=== PATIENT | female | born 1955 | race Caucasian/White ===

== ENCOUNTER 2022-05-21 14:31 | Outpatient (CLI) | payer OTHER, SELFPAY ==
--- NOTE | 2022-05-21 14:30 | CRLHL7_ITS ---
For Patients: As a result of the Century Cures Act, medical imaging exams and procedure reports are released immediately into your electronic medical record. You may view this report before your referring provider. If you have questions, please contact your health care provider. DXA BONE MINERAL DENSITY STUDY Current height (in): 59. Weight (lb): 140. Menopause age: 40. Ethnicity: . 1. Have you had a previous hip or vertebral fracture? No. 2. Have you had any fractures during your adult life which did not result from significant trauma (e.g., auto accident)? No. 3. Did either of your parents have a hip fracture? No. 4. Do you smoke? No. 5. Have you ever taken Glucocorticoids? No. 6. Do you have rheumatoid arthritis? No. 7. Do you have secondary osteoporosis? No. 8. Do you drink 3 or more alcoholic drinks per day? No. 9. Are you being treated for osteoporosis? No. 10. Have you ever taken any of the following medications: Actonel, Evista, Fosamax, Miacalcin, Reclast, Boniva, Forteo, HRT (i.e. estrogen/hormone therapy), Protelos, Prolia, Vitamin D, Calcium, other ??? please specify. ANSWER: No. 11. Do you have any of the following medical conditions: Anorexia or bulimia, asthma or emphysema, end stage renal disease, hyperparathyroidism, any seizure disorders, cancer, inflammatory bowel diseases, hysterectomy, other ??? please specify. ANSWER: Yes, hysterectomy. 12. What was your maximum height (inches)? 59. 13. Do you perform weight bearing exercise regularly? Yes. 14. Do you regularly consume dairy products? No. 15. Do you drink caffeinated beverages? Yes. 16. At what age did your period start? 12. 17. Are you premenopausal? No. 18. How many full term pregnancies have you had? 4. 19. Have you ever missed your period for more than 6 months in a row (not including or menopause)? No. TECHNIQUE: Bone mineral density study was performed using the [employer]. FINDINGS: The results of the study expressed as bone mineral density (BMD) are as follows: Lumbar spine L1 to L4: BMD: 0.689 g/cm2. T-score: -3.3. Z-score: -1.3. Neck Left: BMD: 0.557 g/cm2. T-score: -2.6. Z-score: -1.1. Right: BMD: 0.551 g/cm2. T-score: -2.7. Z-score: -1.2. Total Left: BMD: 0.682 g/cm2. T-score: -2.1. Z-score: -0.8. Right: BMD: 0.714 g/cm2. T-score: -1.9. Z-score: -0.6. IMPRESSION: Osteoporosis. Stanislaw Gutierrez M.D. Diagnostic Radiologist [email or web address] JENNY/Dictated by: Stanislaw Gutierrez MD @ 05/22/2022 4:55:00 PM (Electronically Signed)
== END 2022-05-21 14:32 | disposition home or self-care (01) ==
PROVIDERS: PCP Internal Medicine; Visit Provider Internal Medicine
DX: Z78.0 Asymptomatic menopausal state (principal); M81.0 Age-related osteoporosis without current pathological fracture
CPT/HCPCS: 77080

== ENCOUNTER 2022-05-23 01:12 | Emergency (ER) | payer OTHER, SELFPAY ==
[2022-05-23 01:24] VITALS: BP 123/72; PULSE 74; RESP 16; TEMP 36.6; O2SAT 97; BMI 26.5
--- NOTE | 2022-05-23 01:53 | ED.GENADULT ---
HPI - General Adult General Time Seen by Provider: 01:30 Date Seen: 05/23/22 Chief complaint: Unspecified Complaint, Adult Stated complaint: Rectal Bleeding Time Seen by Provider: 05/23/22 01:13 Source: patient and RN notes reviewed Mode of arrival: ambulatory Limitations: no limitations History of Present Illness HPI narrative: The patient is a very pleasant 67 year old female with a history of hemorrhoids who notes that she has had some bleeding from her rectum tonight. It was only a small amount of blood. This has not happened to her in the past. She denies pain in the rectum, but does note itchiness. She admits to straining with bowel movements but denies constipation. She has not had any surgery for this in the past. Chel denies abdominal pain, fever or vomiting. Related Data Home Medications Medication Instructions Recorded Confirmed No Known Home Medications 05/23/22 05/23/22 Allergies Allergy/AdvReac Type Severity Reaction Status Date / Time No Known Allergies Allergy Unverified 05/19/22 15:00 Review of Systems Const: Denies: fever GI: Reports: rectal pain; Denies: abdominal pain or vomiting PFSH PFS Surgical History History of appendectomy (2019) History of laparoscopic cholecystectomy (09/18/11) Status post vaginal hysterectomy (2014) Social History Smoking Status: Never smoker How often do you have a drink containing alcohol: never AUDIT-C Alcohol total score: 0 Non-prescribed substance use: denies use Exam Narrative: Exam Narrative: History and exam assisted by world geography teacher Const: Vital Signs, click to edit/add: Vital Signs - 24 hr 05/23/22 01:24 Temperature 97.9 F Pulse Rate [Left P ulse Oximeter] 74 Respiratory Rate 16 Blood Pressure [Ri ght Upper Arm] 123/72 Pulse Oximetry 97 Documenting provider has reviewed patient's vital signs: yes Common normals: no apparent distress and oriented x3 General appearance: cooperative Resp: Common normals: normal respiratory effort and clear to auscultation bilaterally Auscultation: clear to auscultation bilaterally Cardio: Common normals: regular rate and regular rhythm Rate: regular rate Rhythm: regular rhythm GI: Common normals: Normal to inspection, nondistended, normoactive bowel sounds present, soft to palpation and non-tender Palpation: soft Rectal Exam - Female: normal sphincter tone, external hemorrhoid(s) and hemorrhoids External hemorrhoid(s): Yes Other: 4oclock position noted to have a small fissure. No active bleeding at this time Neuro: Common normals: oriented x3 Course Vital Signs Vital signs: Initial Vital Signs Temperature 97.9 F 05/23/22 01:24 Temperature Source Temporal Artery Scan 05/23/22 01:24 Pulse Rate 74 05/23/22 01:24 Respiratory Rate 16 05/23/22 01:24 Blood Pressure 123/72 05/23/22 01:24 Blood Pressure Mean 89 05/23/22 01:24 Pulse Oximetry 97 05/23/22 01:24 Oxygen Delivery Method 05/23/22 01:24 Vital Signs Temperature 97.9 F 05/23/22 01:24 Pulse Rate 74 05/23/22 01:24 Respiratory Rate 16 05/23/22 01:24 Blood Pressure 123/72 05/23/22 01:24 Pulse Oximetry 97 05/23/22 01:24 Temperature 97.9 F 05/23/22 01:24 Pulse Rate 74 05/23/22 01:24 Respiratory Rate 16 05/23/22 01:24 Blood Pressure 123/72 05/23/22 01:24 Pulse Oximetry 97 05/23/22 01:24 Discharge Plan Discharge Clinical Impression: Hemorrhoids Patient Disposition: Home, Self-Care Condition: Unchanged Instructions: Hemorrhoids (ED) Additional Instructions: Continue to use your Preparation H and Tucks pads for comfort Gentle wiping after having a bowel movement - try to not strain when having a bowel movement. Follow up with our surgeons if you have ongoing problems [phone] for appointment Activity Level: No Restrictions Prescriptions: No Action No Known Home Medications 0RF Follow Up/Referrals: Ambika Fermin MD [Primary Care Provider] - Stand Alone Forms: [facility] Info Instructions
--- OUTSIDE RECORDS SUMMARY | 2022-06-17 13:02 | XMS_ITS | Continuity of Care Document ---
:1955 Author Organization [facility] Address [address] [address] [place] [address] Phone Care Team Providers Name Role Phone Jorje Peoples MD Unavailable Unavailable Procedures Procedure Date Ugi Endo; W/remov Fb Subsqt Hosp-da E&m Minr Compl Ercp; W/endo Retro Remov Stone Outpt Ercp; W/sphincterotomy/papillo Outpt Ercp; W/endo Retro Insrt Tube Outpt Ercp; W/endo Retro Insrt Tube Outpt Init Inpt Cons New/est Mod-hi Advance Directives Directive Yes / No Effective Date File Name No Information Encounters Encounter Practice Location Reason(s) Diagnoses Date Provider Provide rs Description For Visit Copied on Encounter [facility] No Richelle MARRUFO Referring [facility] Information 6-201 Jorje. Pro vider: [facility], Hosp 1 [address] [facility] [address], [address], [address] [place] [address], [place], [place], [facility] [id number], [place], [address], [id number], [place] tel: [place], [place], [id number] tel:[phone] . 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 30 01 Provider: [facility] Hosp 1 [facility] [address] [place] [address], [address], [place], [place], [address], [place], [place], [address] [id number], [id number], [address], [place]. [place] tel:+ tel:[phone] s, [place], [phone]. tel:[phone] [facility] Dis Of Richelle MARRUFO Referring [facility] Biliary Jorje. Provide r: Health [place], Hosp Tract Nos [address] [facility] [address], [address], [place], [facility] [address], [address], [place], [place], [address] [id number], [place], [address], [place] [id number], [place] tel:+[phone] [place]. [place], [place], [id number] tel:[phone] tel:[phone] Init Inpt [facility] No No Referring Cons New/est [facility] Information Informat ion Provider: [facility], Hosp 1 [facility] [address], [place], [facility] [address], [place], [address] [id number], [address], [place] tel:[phone] s, [place], [phone]. tel:[phone] Family History Family Member Type Diagnosis Age At Onset No Information Payers Payer name Insurance type Covered constitution party ID Authorization(s ) Blue Cross Of [facility] [id number] Social History Type Description Quantity Date Captured Comments Sex Female Smoking Status No Information Chief Complaint And Reason For Visit No Information Reason For Referral Reason For Referral No Information Plan Of Treatment Date Type Action Status No Information History Of Present Illness Encounter Date Complaint History Of Present I llness No Information Functional Status Date Functional Assessment No Information Instructions Date Instruction Additional Informati on No Information Assessments Type Assessment Date No Information Patient Care Teams Name Effective Dates (start - stop) Status M embkenan No Information
--- OUTSIDE RECORDS SUMMARY | 2022-06-17 13:02 | XMS_ITS | Continuity of Care Document ---
:1955 Author Organization [facility] Address [address] [address] [place] [address] Phone Care Team Providers Name Role Phone [...] [facility] No Richelle MARRUFO Referring [facility] Information 6-201 Jorje. Pro vider: [facility] Hosp 1 [address] [place], [address], [address], [address] [place] [address], [place], [place], [facility] [id number], [place], [address], [id number], [place] tel: [place], [place], [address] tel:[phone] . 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 30 01 Provider: [facility], Hosp 1 [facility] [address] [place] [address], [address], [place], [place], [address], [place], [place], [address] [id number], [id number], [address], [place] tel:+ tel:[phone] s, [place], [phone]. tel:[phone] [facility] Dis Of Richelle MARRUFO Referring [facility] Biliary Jorje. Provide r: Health [place], Hosp Tract Nos [address] [facility] [address], [address], [place], [facility] [address], [address], [place], [place], [address] [place] [id number], [place], [address], [place] [id number], [place] tel:+[phone] [place]. [place], [place], [address] tel:[phone] tel:[phone] Init Inpt [facility] No No Referring Cons New/est [facility] Information Informat ion Provider: [facility], Hosp 1 [facility] [address], [place], [facility] [address], [place], [address] [id number], [address], [place] tel:[phone] s, [place], [phone]. tel:[phone] Family History Family Member Type Diagnosis Age At Onset No Information Payers Payer name Insurance type Covered green party ID Authorization(s ) Blue Cross Of [facility] [id number] Social History Type Description Quantity Date Captured [...]
== END 2022-05-23 02:14 | disposition home or self-care (01) ==
LOC: ED 01:57
PROVIDERS: Emergency Provider Family Medicine; PCP Internal Medicine
DX: K64.9 Unspecified hemorrhoids (principal)
CPT/HCPCS: 99282

== ENCOUNTER 2023-09-22 10:17 | Outpatient (CLI) | payer OTHER, SELFPAY ==
--- OUTSIDE RECORDS SUMMARY | 2023-09-22 10:22 | XMS_ITS | Patient Health Record ---
Author Name Unknown Organization [facility] Address [address] [place], [place] [id number] Care Team Providers Care Tag Meter Operator Name Role Phone Grace Soto Primary Care Provider Unavailable REASON FOR REFERRAL No Information SOCIAL HISTORY Tobacco Use: Social History Observation Description Date Details (start date - stop date) Never Smoker NA - NA Sex Assigned At : Social History Observation Description Sex Assigned At Unknown Tobacco Use/Smoking Question Answer Notes Are you a nonsmoker Sexual History Question Answer Notes Had sex in the past 12 months (vaginal, oral, or anal)? Yes PLAN OF TREATMENT No Information Insurance Providers Payer Name Payer Address Payer Phone Subscriber Number Group Number Insured Name Patient Relationship to Insured Coverage Start Date Coverage End Date [facility] [address] [facility] [place] [id number] StewartChel Self - patient is the insured MEDICAL (GENERAL) HISTORY Medical History History ICD Code Gallbladder disease Surgical History Surgery Date(Month/Year) Cystocele repair with vaginal tape 2008 cholecystectomy 2010 Vaginal hysterectomy with bilateral salp ingectomy 2014
== END 2023-09-22 10:18 | disposition home or self-care (01) ==
PROVIDERS: PCP Internal Medicine; Visit Provider Obstetrics & Gynecology
DX: Z01.419 Encounter for gynecological examination (general) (routine) without abnormal findings (principal); E53.8 Deficiency of other specified B group vitamins; E66.9 Obesity, unspecified; R35.0 Frequency of micturition; D64.9 Anemia, unspecified
CPT/HCPCS: 80061; 84443; 87086

== ENCOUNTER 2023-12-21 08:59 | Outpatient (CLI) | payer MEDICARE, SELFPAY ==
--- NOTE | 2023-12-21 12:53 | W.ANESCHARGE ---
Anesthesia Charges Start Date/Time Anesthesia Start Date: 12/21/23 Anesthesia Start Time: 09:52 Stop Date/Time Anesthesia Stop Date: 12/21/23 Anesthesia Stop Time: 10:19
== END 2023-12-21 09:00 | disposition home or self-care (01) ==
LOC: OP CLINIC 09:00
PROVIDERS: PCP Internal Medicine; Visit Provider Internal Medicine
DX: R10.84 Generalized abdominal pain (principal); R19.4 Change in bowel habit
CPT/HCPCS: 00811; 00812; 45378; T1013; J2704

== ENCOUNTER 2024-03-02 08:34 | Outpatient (CLI) | payer MEDICARE, SELFPAY ==
--- NOTE | 2023-12-21 10:24 | W.ANESCHARGE ---
Anesthesia Charges Start Date/Time Anesthesia Start Date: 12/21/23 Anesthesia Start Time: 09:52 Stop Date/Time Anesthesia Stop Date: 12/21/23 Anesthesia Stop Time: 10:19
--- OUTSIDE RECORDS SUMMARY | 2024-03-02 08:37 | XMS_ITS | Clinical Summary ---
Author Name Unknown Organization [facility] Address [place], [place] [address] Care Team Providers Care Director Of Employee Development Name Role Phone Clare Hedrick MD Primary Care Provider [phone] Allergies No known active allergies Medications Medication Sig Dispensed Refills Start Date End Date Status acetaminophen (TYLENOL EXTRA STRGTH) 500 mg tablet Take 1 tablet by mouth every 6 hours if needed for Headache, Pain and Temp>101.5F (38.6C). Max acetaminophen dose: 4000mg in 24 hrs. 60 tablet 0 09/25/2011 Active pantoprazole (PROTONIX) 40 mg tablet Take 1 tablet by mouth once daily. 30 tablet 0 09/25/2011 Active sennosides (SENNA) 8.6 mg tablet Take 1-2 tablets by mouth 2 times daily if needed for Constipation. 60 tablet prn 09/25/2011 Active NAPROXEN SODIUM (ALEVE ORAL) Take 2 tablets by mouth every 4 hours. 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 Laparoscopic cholecystectomy on 09/18/11. Difficult procedure. See op note on paper records sent from outside hospital. Likely Bile leak, postoperative 09/22/2011 Overview: Increased abdominal pain, drainage. Depression 09/22/2011 Overview: Mild; formerly treated, but not now. Seems situational due to family strife/concern for daughter. GERD (gastroesophageal reflux disease) 11/14/201 1 Overview: Not currently medicated. ACP (advance care planning) 09/22/2011 Overview: Patient has identified Health Care Agent(s): No Add Health Care Agents: No Patient has Advance Care Plan Documents (Health Care Directive, POLST): No, referral made to Social Work Services. Patient has identified Specific Treatment Preferences: Yes Specific Treatment Preferences: a.) Code Status: CPR/Attempt Resuscitation Immunizations Name Administration Dates Next Due Influenza, High-dose Quadrivalent Inactivated Influenza, IIV4 08/21/2020,10/18/2018 Pneumococcal conj 13-Valent (Prevnar 13) 020 Td (Age >=7 Years) 11/21/2019 Tdap 05/07/2009 Family History Medical History Relation Name Comments Good Health Brother Good Health Daughter past cholecyste ctomy Good Health Father a.90 Good Health Mother a.85 Good Health Sister Good Health Son Cancer-breast No Family History Relation Name Status Comments Brother Daughter Father Mother Sister Son Social History Tobacco Use Types Packs/Day Years Used Date Smoking Tobacco: Never Smokeless Tobacco: Never Alcohol Use Standard Drinks/Week Comments No 0 (1 standard drink = 0.6 oz pur e alcohol) Never a problem Social Connections Answer Date Recorded Frequency of Communication with Friends and Fami ly Not on file 10/30/2021 Financial Resource Strain Answer Date R ecorded Difficulty of Paying Living Expenses Not on file 10/30/2021 Difficulty of Paying Living Expenses Not on file 10/30/2021 Sex and Gender Information Value Date Recorded Sex Assigned at Not on file Gender Identity Not on file Sexual Orientation Not on file Obstetrics History Para Term AB IAB SAB Ectopic Multiple Livin g Live Births 4 4 Date Outcome GA Total Labor Labor/2nd/3rd Weight Sex Delivery Anes PTL Cadence A1 A5 Name Cl in Last Filed Vital Signs Vital Sign Reading Time Taken Comments Blood Pressure 111/70 10/29/2021 2:59 PM [employer]UM PLANT SUPERVISOR Pulse 85 10/29/2021 2:59 PM ALUM PL[employer] SUPERVISOR Temperature 36.9 ??C (98.4 ??F) 09/25/2011 1 2:00 PM ALUM PL[employer] SUPERVISOR Respiratory Rate 16 10/24/2011 4:50 PM ALUM PL[employer] SUPERVISOR Oxygen Saturation 94% 10/24/2011 4:50 PM ALUM PLANT SUPERVISOR Inhaled Oxygen Concentration - - Weight 65.7 kg (144 lb 12.8 oz) 10/29/2021 2:59 PM [employer]UM PL[employer] SUPERVISOR Height 154.9 cm (5' 1) 10/24/2011 2:01 PM [employer]UM [employer] SUPERVISOR Body Mass Index - - Plan of Treatment Health Maintenance Due Date Last Done Comments Depression screening for age 12+ 1967 BMI (ht and wt on same day) for age 18+ 1973 Hepatitis C screening for age 18-79 1973 Colonoscopy through age 75 2000 Zoster (shingles) series for age 50+ (1 of 2) 2005 Mammogram for age 45-75 08/18/2012 08/18/20, 06/21/2010, 05/23/2009 Lipids for age 45-75 08/14/2014 08/14/2009 DEXA/DXA scan for age 65+ 2020 Pneumococcal series for age 65+ (2 of 2 - PPSV23 or PCV20) 09/17/2021 09/17/2020 COVID-19 vaccine series (3 - 2022- season) 2023 09/17/2021, 01/26/2021 Influenza for age 65+ 07/10/2024 08/29/2021 , 08/21/2020, 10/18/2018 Tetanus booster 11/21/2029 11/21/2019, 05/07/2009 Tdap Completed 05/07/2009 Medical Devices Implanted Type Area Muck Miner Device Identifier Shelf Expiration Date Model / Serial / Lot Stent Biliary Cotton-Huibr 7fr 10cm - [id number] Implanted:Qty: 1 on 09/23/2011 at [facility] N/A: Common Bile Duct [facility] [employer] CHBSO-7-10 # / / [id number] Stent Pancreatic 4fr 7cm [place] - [id number] Implanted:Qty: 1 on 09/23/2011 at [facility] N/A: See Notes [employer] [id number]# / / [id number] Procedures Procedure Name Priority Date/Time Associated Diagnosis Comments SCAN-MAMMOGRAPHY REPORT 08/18/2011 12:00 AM CDT LIPID PANEL Routine 08/14/2009 9:44 AM CDT Lipid Screening from Last 3 Months or Most Recently Relevant to Health Maintenance Results * SCAN-MAMMOGRAPHY REPORT (08/18/2011 12:00 AM CDT) Anatomical Region Laterality Modality Other Narrative Procedure Note Scanner - 08/18/2011 12:00 AM CDT Scanner OTHER * LIPID PANEL (08/14/2009 9:44 AM CDT) CHOLESTEROL,TOTAL 171 110 - 199 mg/dL [facility] TRIGLYCERIDES 94 <150 mg/dL [facility] HDL CHOLESTEROL 57 >40 mg/dL [facility] CHOL/HDL RATIO 3.[address] [facility] LDL CHOLESTEROL 95 <131 mg/dL [facility] PATIENT STATUS Fasting [facility] Blood specimen (specimen) BLOOD SPECIMEN / Unknown 08/14/2009 9:44 AM CDT 08/14/2009 9:39 AM CDT Manuela Muhammad PUBLIC RELATIONS PROFESSIONAL CHEMISTRY [facility] [address] [place] [address] from Last 3 Months or Most Recently Relevant to Health Maintenance Advance Directives * Full Code (Latest Code Status on File) Date Activated Date Inactivated Comments 09/22/2011 3:51 PM 09/25/2011 5:49 PM Care Teams Director Of Employee Development Relationship Specialty Start Date End Date Clare Hedrick MD PCP - General 09/22/11
--- NOTE | 2024-03-02 08:45 | MM_ITS ---
Patient: MAYLIN PHAM Facility:?[facility] Patient ID:?[id number] Site Patient ID:?[id number]. Site :?[id number] Study:?XRay-Breast Bilateral 3D W/CAD-03/02/2024 8:56:45 AM Ordering Physician:Ambika Dumont Final Report: BILATERAL SCREENING MAMMOGRAM WITH COMPUTER-AIDED DETECTION AND TOMOSYNTHESIS TECHNIQUE: CC and MLO views were obtained. These mammographic images have been obtained using full-field digital technique. These mammographic images were interpreted with the benefit of computer-aided detection. Breast Tomosynthesis was used in this interpretation. COMPARISON FILM: 03/17/22, 02/07/21, 01/12/20. FINDINGS: There are scattered areas of fibroglandular density. IMPRESSION: There is no radiographic evidence for malignancy. ASSESSMENT: BI-RADS Category 1: Negative RECOMMENDATION: Routine screening mammogram in 1 year. A lay language report of this examination will be provided to the patient. Stanislaw Gutierrez M.D. Diagnostic Radiologist [email or web address] DSM/sp R& Transcribed: 6:53 p.m. SP/Dictated by: Stanislaw Gutierrez MD @ 03/03/2024 1:16:00 PM Signed by:Zain Gutierrez MD @03/04/2024 11:26:36 AM (Electronic Signature)
== END 2024-03-02 08:35 | disposition home or self-care (01) ==
LOC: MAMMO 08:36
PROVIDERS: PCP Internal Medicine; Visit Provider Internal Medicine
DX: Z12.31 Encounter for screening mammogram for malignant neoplasm of breast (principal)
CPT/HCPCS: 77063; 77067